=== PATIENT | female | born 2000 | race Caucasian/White ===

== ENCOUNTER 2025-01-14 16:18 | Inpatient (IN) | payer OTHER ==
[2025-01-14] MEDS ORDERED: Lidocaine 1% 50 ML MDV INJECT PRN (16:23)
[2025-01-14] MEDS ORDERED: Ondansetron 4 MG/2 ML SDV IVPUSH PRN (16:23)
[2025-01-14] MEDS ORDERED: Nalbuphine 10 MG/1 ML Vial IVPUSH PRN (16:23)
[2025-01-14] MEDS ORDERED: Sodium Chloride 0.9% 10 ML Syringe FLUSH PRN (16:23)
[2025-01-14] MEDS ORDERED: Lactated Ringers 1,000 ML IV SCH (16:30)
[2025-01-14] MEDS ORDERED: Acetaminophen 325 MG Tab PO PRN (17:18)
[2025-01-14 18:19] LABS: BASOPHILS PERCENT AUTO 0.1 % (0.0-1.0); EOSINOPHILS PERCENT AUTO 0.1 % (0.0-6.0); HEMATOCRIT 29.9 % (37.0-47.0); HEMOGLOBIN 9.5 gm/dl (12.0-16.0); IMMATURE GRAN ABSOLUTE AUTO 0.13 K/mm3 (0.00-0.05); IMMATURE GRAN PERCENT AUTO 0.9 % (0.0-0.4); LYMPHOCYTES ABSOLUTE AUTO 1.2 K/mm3 (1.0-4.8); LYMPHOCYTES PERCENT AUTO 8.4 % (24.0-44.0); MEAN CORPUSCULAR HEMOGLOBIN 27.6 pg (28.0-32.0); MEAN CORPUSCULAR HGB CONC 31.8 g/dl (32.0-36.0); MEAN CORPUSCULAR VOLUME 86.9 fl (83.0-99.0); MEAN PLATELET VOLUME 9.5 fl (9.4-12.3); MONOCYTES ABSOLUTE AUTO 0.6 K/mm3 (0.0-0.8); MONOCYTES PERCENT AUTO 4.1 % (0.0-8.0); NEUTROPHILS ABSOLUTE AUTO 12.6 K/mm3 (1.8-7.7); NEUTROPHILS PERCENT AUTO 86.4 % (41.0-71.0); PLATELET COUNT,PLT 216 K/mm3 (150-400); RED BLOOD CELL COUNT 3.44 M/mm3 (4.10-5.30)
[2025-01-14] MEDS: Witch Hazel Medicated Pads 40/Jar TOP PRN (18:47)
[2025-01-14] MEDS: Oxytocin/0.9 % Sodium Chloride 30 UNIT/500 ML BAG IV SCH (18:47)
[2025-01-14] MEDS: Benzocaine/Menthol 20%-0.5% Spray 78 GM Cannister TOP PRN (18:48)
[2025-01-14] MEDS: Ibuprofen 600 MG Tab PO SCH (18:50)
[2025-01-14] MEDS ORDERED: Sodium Chloride 0.9% 10 ML Syringe FLUSH SCH (21:00)
[2025-01-15] MEDS: Docusate Sodium 100 MG Cap PO PRN (15:51)
[2025-01-15 17:14] LABS: HEMATOCRIT 28.8 % (37.0-47.0); HEMOGLOBIN 9.2 gm/dl (12.0-16.0); MEAN CORPUSCULAR HEMOGLOBIN 27.5 pg (28.0-32.0); MEAN CORPUSCULAR HGB CONC 31.9 g/dl (32.0-36.0); MEAN PLATELET VOLUME 9.7 fl (9.4-12.3); PLATELET COUNT,PLT 225 K/mm3 (150-400); RED BLOOD CELL COUNT 3.35 M/mm3 (4.10-5.30); WHITE BLOOD CELL COUNT,WBC 10.82 K/mm3 (3.9-11.3)
== END 2025-01-15 17:30 | disposition home or self-care (01) | DRG 807 ==
LOC: JD.OBCHECK 16:18 → JD.OB 16:19 → JD.OBCHECK 16:27 → JD.OB 16:43 → OBSVTOIN 16:43 → JD.OB 16:44
PROVIDERS: ADMIT Obstetrics & Gynecology; ATTEND Obstetrics & Gynecology
PROC: 10E0XZZ Delivery of Products of Conception, External Approach (ICD-10-PCS; principal; 2025-01-14)
DX: O66.0 Obstructed labor due to shoulder dystocia (principal); Z37.0 Single live birth; Z3A.00 Weeks of gestation of pregnancy not specified
CPT/HCPCS: 36415; 59025; 59409; 85025; 85027; 86592; A9270-GY; J7999